=== PATIENT | female | born 1970 | race Caucasian/White ===

== ENCOUNTER 2016-11-06 02:45 | Emergency (ER) | payer BC ==
[2016-11-06 03:07] LABS: BASOPHIL# 0.1 X 10^3uL (0.0-0.1); BASOPHILS 0.6 % (0.0-2.0); EOSINOPHILS# 1.5 X 10^3uL (0.0-0.4); HEMATOCRIT 42.5 % (36.0-48.0); HEMOGLOBIN 14.4 g/dL (12.0-16.0); LYMPHOCYTES 24.2 % (20.0-40.0); LYMPHOCYTES# 2.3 X 10^3uL (0.8-3.8); MEAN CELL VOLUME 86.8 fL (84.0-102.0); MEAN CORPUS. HGB CONCENTRATION 33.9 g/dL (32.0-36.0); MEAN CORPUSCULAR HEMOGLOBIN 29.4 pg (29.0-35.0); MONOCYTES 6.7 % (2.0-10.0); MONOCYTES# 0.6 X 10^3uL (0.2-1.0); NEUTROPHILS 52.6 % (54.0-75.0); PLATELET COUNT 234 X 10^3uL (130-440); RED BLOOD COUNT 4.89 X 10^6uL (4.20-6.10); RED CELL DISTRIBUTION WIDTH 12.9 % (11.5-14.5); WHITE BLOOD COUNT 9.5 X 10^3uL (3.9-10.7)
[2016-11-06 03:13] LABS: BLOOD UREA NITROGEN 16 mg/dL (7-17); CALCIUM 9.6 mg/dL (8.4-10.2); CHLORIDE 104 mmol/L (98-107); CREATININE 0.9 mg/dL (0.5-1.0); EST GLOMERULAR FILTRATION RATE > 60 mL/min; GLUCOSE 93 mg/dL (70-100); POTASSIUM 3.8 mmol/L (3.5-5.1); SODIUM 143 mmol/L (137-145)
[2016-11-06 03:21] LABS: EOSINOPHILS 15.9 % (0.0-6.0)
[2016-11-06 03:27] LABS: TROPONIN I < 0.012 ng/mL (0.00-0.034)
[2016-11-06] MEDS ORDERED: FAMOTIDINE 20 MG TABLET ONE (06:22)
[2016-11-06] MEDS ORDERED: LIDOCAINE VISCOUS 2% 15 ML UDC ONE (06:22)
[2016-11-06] MEDS ORDERED: MAG-AL PLUS XS SUSP 30 ML UDC ONE (06:22)
--- NOTE | 2016-11-06 06:23 | ER NURSING DOCUMENTATION ---
Nurse's Notes [facility] Name:Nataliya Nguyen Age:46 yrs Sex:Female :1970 Arrival Date:11/06/2016 Time:02:45 BedTrauma C Private MD: Diagnosis:Chest Pain Presentation: 11/06 02:57 Acuity: TAMIKA 2 02:58 Presenting complaint: Patient states: Pt awoke one hour ago with stabbing/crushing rh chest pain below her sternum that radiates into the right shoulder and jaw. Pt was nauseated, diaphoretic and felt like she was going to . Transition of care: Home. Asprin Given Given in ED 324 mg po. 02:58 Method Of Arrival: Walk In Triage Assessment: 02:59 General: Appears in no apparent distress, Behavior is cooperative. Pain: Complains of rh pain in chest. EENT: Oral mucosa is moist. Neuro: Level of Consciousness is awake, alert, obeys commands. Cardiovascular: Capillary refill < 3 seconds Reports Diaphoresis lightheadedness, Nausea shortness of breath Chest pain is described as severe, quality is crushing, heaviness, stabbing, is located in substernal area radiates to right back jaw(s) began 1 hour prior to arrival episodes are continuous. Respiratory: Airway is patent Breath sounds are clear bilaterally. Denies shortness of breath currently, pt reported shortness of breath one hour ago with pain began. GI: Abd is soft and non tender X 4 quads. : No deficits noted. Derm: Skin is intact, is healthy with good turgor, Skin is pink, warm & dry. Historical: - Allergies: SULFA (SULFONAMIDES); - Home Meds: 1. None - PMHx: MITRAL VALVE PROLAPSE; ASD; FIBROMYALGIA; - PSHx: Cholecysectomy; - Tetanus: unknown. - Ebola Screening: : Patient negative for fever greater than or equal to 101.5 degrees Fahrenheit, and additional compatible Ebola Virus Disease symptoms. - Immunization history: Flu Vaccine None. - Social history: Smoking status: Patient states was never smoker of tobacco. Screenin:02 Infectious Disease Risk None. Abuse screen: Denies threats or abuse. Denies injuries rh from another. Nutritional screening: No deficits noted. Assessment: 03:01 See Triage Assessment done by same RN. 03:36 Cardiovascular: Denies lightheadedness, Chest pain is denied. Respiratory: Airway is rh patent Respiratory effort is even, unlabored, Respiratory pattern is regular, symmetrical. 05:39 Reassessment: Patient denies pain at this time. Cardiovascular: Chest pain is denied. rh Vital Signs: 02:50 BP 134 / 85; Pulse 74; Resp 14; Temp 97.6(O); Pulse Ox 96% on R/A; Weight 72.57 kg; rh Height 5 ft. 5 in. (165.10 cm); Pain 8/10; 03:33 BP 128 / 79; Pulse 72; Resp 14; Pulse Ox 95% on R/A; Pain 0/10; rh 04:35 BP 113 / 86; Pulse 69; Resp 17; Pulse Ox 93% on R/A; Pain 0/10; rh 05:39 BP 132 / 83; Pulse 75; Resp 15; Pulse Ox 94% on R/A; Pain 0/10; rh 06:22 BP 113 / 74; Pulse 72; Resp 15; Pulse Ox 95% on R/A; Pain 0/10; rh 02:50 Body Mass Index 26.63 (72.57 kg, 165.10 cm) rh ED Course: 02:46 Patient arrived in ED. ma1 02:46 EKG done. (by ED staff). Reviewed by Finesse Greenberg MD. rh 02:50 night monitor on. Pulse ox on. NIBP on. rh 02:52 Inserted peripheral IV: 20 gauge in left antecubital area and blood collected. rh 02:55 Notified ED Physician of patient's arrival and chief complaint. Dr. Greenberg notified. 02:56 Finesse Greenberg MD is Attending Physician. 02:56 Lissette Ng is Primary Nurse. rh 02:57 Triage completed. rh 03:02 Valuables Remains with patient Patient has correct armband on for positive rh identification. Placed in gown. Bed in low position. Call light in reach. Side rails up X 1. 03:24 Port Xray Completed. mr 05:04 EKG attached rh 05:33 EKG done. (by ED staff). Reviewed by Finesse Greenberg MD. rh 06:02 Konrad Smith MD is Referral Physician. jm 06:04 EKG attached rh Administered Medications: 02:57 Drug: Aspirin Chewable Tablet 324 mg; Route: PO; rh 03:02 Follow up: Response: No adverse reaction rh 02:58 Drug: NS 0.9% 1000 ml; Route: IV; Rate: bolus; Site: left antecubital; rh 03:30 Follow up: IV Status: Completed infusion; IV Intake: 1000ml rh 06:19 Drug: GI Cocktail w/o Donnatol - (Maalox Suspension 30 ml, Lidocaine Liquid 2 % 15 ml); rh Route: PO; 06:21 Follow up: Response: No adverse reaction rh 06:20 Drug: Pepcid 20 mg; Route: PO; rh 06:21 Follow up: Response: No adverse reaction rh 06:21 CANCELLED (Duplicate Order): GI Cocktail w/o Donnatol - (Maalox Suspension 30 ml, rh Lidocaine Liquid 2 % 15 ml) PO once 06:21 CANCELLED (Duplicate Order): Pepcid 20 mg PO once rh Intake: 03:30 IV: 1000ml; Total: 1000ml. Outcome: 06:02 Discharge ordered by MD. padron 06:22 Discharged to home ambulatory, with significant other. 06:22 Condition: improved 06:22 Discharge Assessment: Patient awake, alert and oriented x 3. No cognitive and/or functional deficits noted. Patient verbalized understanding of disposition instructions. 06:22 Discharge instructions given to patient, Instructed on discharge instructions, follow up and referral plans. Demonstrated understanding of instructions. 06:22 IV D/Vini 06:23 Patient left the ED. Signatures: Finesse Greenberg MD MD jm Hofsess, Rachel Ashley Fernández Michael mr
--- NOTE | 2016-11-06 06:23 | ER PHYSICIAN DOCUMENTATION ---
Physician Documentation [facility] Name:January Patrick Age:46 yrs Sex:Female :1970 Arrival Date:11/06/2016 Time:02:45 BedTrauma C Private MD: Finesse Cavazos Disposition: 11/06/16 06:02 Discharged to Home/Self Care. Impression: Chest Pain. - Condition is Good. - Discharge Instructions: CHEST PAIN, Uncertain Cause. - Medical Reconciliation form form. - Follow up: Konrad Smith MD; When: tuesday or tuesday; Reason: Recheck today's complaints, Continuance of care. - Problem is new. - Symptoms have improved. - Notes: Return for stress test on tuesday or tuesday next week. Historical: - Allergies: SULFA (SULFONAMIDES); - Home Meds: 1. None - PMHx: MITRAL VALVE PROLAPSE; ASD; FIBROMYALGIA; - PSHx: Cholecysectomy; - Tetanus: unknown. - Ebola Screening: : Patient negative for fever greater than or equal to 101.5 degrees Fahrenheit, and additional compatible Ebola Virus Disease symptoms. - Immunization history: Flu Vaccine None. - Social history: Smoking status: Patient states was never smoker of tobacco. Vital Signs: 11/06 02:50 BP 134 / 85; Pulse 74; Resp 14; Temp 97.6(O); Pulse Ox 96% on R/A; Weight 72.57 kg; rh Height 5 ft. 5 in. (165.10 cm); Pain 8/10; 03:33 BP 128 / 79; Pulse 72; Resp 14; Pulse Ox 95% on R/A; Pain 0/10; rh 04:35 BP 113 / 86; Pulse 69; Resp 17; Pulse Ox 93% on R/A; Pain 0/10; rh 05:39 BP 132 / 83; Pulse 75; Resp 15; Pulse Ox 94% on R/A; Pain 0/10; rh 06:22 BP 113 / 74; Pulse 72; Resp 15; Pulse Ox 95% on R/A; Pain 0/10; rh 02:50 Body Mass Index 26.63 (72.57 kg, 165.10 cm) rh MDM: 02:56 Patient medically screened. 05:04 EKG attached 06:04 EKG attached 11/06 03:20 Order name: BASIC METABOLIC PANEL; Complete Time: 05:53 EDMS 11/06 03:20 Order name: MAGNESIUM; Complete Time: 05:53 EDMS 11/06 03:21 Order name: CBC AUTO DIF, MDIF/RMOR IF IND; Complete Time: 05:53 EDMS 11/06 03:27 Order name: TROPONIN I; Complete Time: 05:53 EDMS 11/06 06:10 Order name: TROPONIN I; Complete Time: 06:13 EDMS 11/06 02:57 Order name: 12-lead EKG; Complete Time: 02:57 11/06 02:57 Order name: Iv Saline Lock; Complete Time: 02:57 11/06 02:57 Order name: Place Patient On Monitor; Complete Time: 02:57 11/06 02:57 Order name: Pulse Ox Continuous; Complete Time: 02:57 11/06 05:26 Order name: EKG - 12 Lead; Complete Time: 05:35 rh Dispensed Medications: 02:57 Drug: Aspirin Chewable Tablet 324 mg; Route: PO; rh 03:02 Follow up: Response: No adverse reaction rh 02:58 Drug: NS 0.9% 1000 ml; Route: IV; Rate: bolus; Site: left antecubital; rh 03:30 Follow up: IV Status: Completed infusion; IV Intake: 1000ml rh 06:19 Drug: GI Cocktail w/o Donnatol - (Maalox Suspension 30 ml, Lidocaine Liquid 2 % 15 ml); rh Route: PO; 06:21 Follow up: Response: No adverse reaction rh 06:20 Drug: Pepcid 20 mg; Route: PO; rh 06:21 Follow up: Response: No adverse reaction rh 06:21 CANCELLED (Duplicate Order): GI Cocktail w/o Donnatol - (Maalox Suspension 30 ml, rh Lidocaine Liquid 2 % 15 ml) PO once 06:21 CANCELLED (Duplicate Order): Pepcid 20 mg PO once rh Signatures: Finesse Greenberg MD MD jm Hofsess, Rachel
--- NOTE | 2016-11-08 14:31 | RADIOLOGY REPORT ---
A limited single portable view of the chest demonstrates the heart, vessels and lungs to be unremarkable. No infiltrate, fluid or pneumothorax is seen. IMPRESSION: Unremarkable single portable view of the chest. MTDD
== END 2016-11-06 06:23 | disposition home or self-care (01) ==
LOC: ER 02:45
DX: R07.2 Precordial pain (principal); R68.84 Jaw pain; R42 Dizziness and giddiness; R61 Generalized hyperhidrosis; I34.1 Nonrheumatic mitral (valve) prolapse
CPT/HCPCS: 71010; 80048; 83735; 84484; 85025; 93005; 96360; 99285